=== PATIENT | male | born 1995 | race Caucasian/White ===

== ENCOUNTER 2018-04-25 23:11 | Emergency (ER) | payer SELFPAY, OTHER | END 2018-04-26 03:42 | disposition left against medical advice (07) | LOC: FTE 23:11 | DX: L03.114 Cellulitis of left upper limb (principal); F15.10 Other stimulant abuse, uncomplicated; F17.210 Nicotine dependence, cigarettes, uncomplicated | CPT/HCPCS: 99283 ==